=== PATIENT | female | born 1945 | race Caucasian/White ===

== ENCOUNTER → 2021-11-10 13:12 | Outpatient (CLI) | payer MEDICARE, OTHER, SELFPAY ==
--- NOTE | 2021-11-10 13:19 | DI.MRI.S_ITS ---
PROCEDURE: MR ABDOMEN WO/W CON INDICATIONS: LIVER MASS TECHNIQUE: Coronal HASTE, axial 2D FLASH in- and [id number]; axial breath-hold T2 FSE. Dynamic axial VIBE during the administration of contrast; post-contrast coronal VIBE or 2D FLASH with fat saturation from the hepatic dome to the iliac crests. Optional diffusion weighted imaging and ADC may be performed. COMPARISON: None. FINDINGS: Image quality: Excellent. Lung bases: No basal pleural effusions. Heart size is normal. Solid organs: Liver: Normal size without significant fat infiltration. There is a large mass, heterogeneously mildly T2 hyperintense involving segments IV a and IV B. It measures about 8.5 x 7.1 by about 9.8 cm and causes retraction of the overlying capsule, peripheral/distal biliary obstruction and demonstrates predominantly delayed peripheral enhancement with potentially a central scar enhancing early. 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 There is displacement without occlusion of the middle and left hepatic veins. No visible tumor thrombus. Elsewhere in the right hepatic lobe, there are a few cm sized cysts. Gallbladder: Normal wall thickness. No visible stone. Biliary ducts: There is peripheral intrahepatic biliary dilatation in segments II and III of the left hepatic lobe and cranially in segment IV a. No extrahepatic biliary dilatation. Pancreas: Normal. Spleen: Upper limits of normal measuring 12.7 cm in AP diameter. Adrenal Glands: No nodules. Kidneys and Ureters: There is a mixed T2 hyper and hypointense exophytic mass arising from the posterior upper pole of the left kidney which measures 3.9 x 3.5 x 3.6 cm. The portion nearest the cortex is predominantly cystic. The peripheral portion demonstrates an enhancing septation and two enhancing mural nodules. Subcentimeter cysts are seen in the right renal cortex. Kidneys are otherwise normal without hydronephrosis. No ureteral dilatation visible. Nodes and vessels: Moderately prominent portacaval lymph node present measuring 1.3 cm in diameter. No other bulky adenopathy. Aorta and inferior vena cava are normal in size. Bowel and peritoneum: Unenhanced bowel loops are normal in caliber. No free fluid. Bones and soft tissues: No ventral hernias. Bone marrow is normal in overall signal. IMPRESSION: 1. 9.8 cm delayed enhancing liver mass causing peripheral biliary dilatation. 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 Differential diagnosis includes metastatic lesion or less likely atypical giant cavernous hemangioma. 2. Predominantly cystic exophytic left renal mass measuring up to 3.9 cm with mildly suspicious enhancing mural nodules. Comparison to any prior studies, and urology consult are recommended. 3. Single prominent portacaval lymph node. 4. Borderline splenomegaly. Dictated by: Radha Arguelles M.D. on 11/10/2021 at 17:08 Approved by: Radha Arguelles M.D. on 11/10/2021 at 18:11
== END ==
PROVIDERS: PCP Physician Assistant; Referring Provider Physician Assistant; Visit Provider Physician Assistant
DX: K76.89 Other specified diseases of liver (principal); N28.1 Cyst of kidney, acquired; R16.1 Splenomegaly, not elsewhere classified; R59.0 Localized enlarged lymph nodes
CPT/HCPCS: 74183; A9579